=== PATIENT | female | born 1990 | race Two or more races ===

== ENCOUNTER 2019-07-09 08:39 | Emergency (ER) | payer OTHER ==
[~2019-07-09] VITALS: Ht 144.8 cm; Wt 72.6 kg
[2019-07-09] MEDS ORDERED: PROMETH-CODEIN 65 ML PO (09:53)
[2019-07-09] MEDS ORDERED: ZITHROMAX500 MG PO (09:53)
[2019-07-09] MEDS ORDERED: TESSALON PERLE100 M1 PO (09:53)
== END 2019-07-09 10:16 | disposition home or self-care (01) ==
LOC: ER 08:39
DX: J06.9 Acute upper respiratory infection, unspecified (principal)

== ENCOUNTER 2019-11-19 08:56 | Emergency (ER) | payer OTHER ==
[~2019-11-19] VITALS: Ht 121.9 cm; Wt 68.0 kg
[~2019-11-19 08:56] MED LIST: PROMETH-CODEIN 65 ML PO; TESSALON PERLE100 M1 PO; ZITHROMAX500 MG PO
[2019-11-19] MEDS ORDERED: ZITHROMAX500 MG PO (11:31)
[2019-11-19] MEDS ORDERED: CLARITIN10 MG PO (11:31)
[2019-11-19] MEDS ORDERED: TUSNEL LIQUID178 ML PO (11:31)
[2019-11-19] MEDS ORDERED: DOLOGEN CAPLET1 EACH PO (11:31)
== END 2019-11-19 12:27 | disposition home or self-care (01) ==
LOC: ER 08:56
DX: J06.9 Acute upper respiratory infection, unspecified (principal)

== ENCOUNTER 2023-01-13 13:03 | Emergency (ER) | payer OTHER ==
[~2023-01-13] VITALS: Ht 154.9 cm; Wt 97.5 kg
[~2023-01-13 13:03] MED LIST changes: +CLARITIN10 MG PO; +DOLOGEN CAPLET1 EACH PO; +TUSNEL LIQUID178 ML PO
== END 2023-01-13 16:35 ==
LOC: ER 13:03
DX: T07.XXXA Unspecified multiple injuries, initial encounter (principal); W19.XXXA Unspecified fall, initial encounter; Y93.9 Activity, unspecified; Y92.89 Other specified places as the place of occurrence of the external cause; Y99.9 Unspecified external cause status; M62.838 Other muscle spasm; M54.9 Dorsalgia, unspecified

== ENCOUNTER 2023-01-16 08:18 | Emergency (ER) | payer OTHER ==
[~2023-01-16] VITALS: Ht 134.6 cm; Wt 74.8 kg
== END 2023-01-16 13:54 | disposition home or self-care (01) ==
LOC: ER 08:18
DX: I10 Essential (primary) hypertension (principal)